=== PATIENT | female | born 1950 | race African-American/Black ===

== ENCOUNTER 2021-05-13 20:10 | Emergency (ER) | payer OTHER, BC ==
[~2021-05-13] VITALS: Ht 165.1 cm; Wt 60.3 kg
[2021-05-13 21:03] LABS: ABSOLUTE NEUTROPHILS 4.1 thou/uL (1.4-8.2); BASOPHILS 0.6 % (0.0-2.0); EOSINOPHILS 0.1 % (0.0-3.0); HEMOGLOBIN 14.9 gm/dL (12.0-15.0); MCH 29.8 pg (26.0-34.0); MCHC 33.9 g/dL (28.0-37.0); MONOCYTES 5.9 % (1.0-8.0); PLATELET COUNT 199 thou/uL (150-400); POLYS 76.4 % (36.0-66.0); RBC 4.99 mil/uL (4.20-5.00); RDW 13.7 % (10.5-14.5); WBC 5.4 thou/uL (4.0-11.0)
[2021-05-13 21:15] LABS: CALCIUM 9.2 mg/dL (8.5-10.1); CREATININE 1.1 mg/dL (0.6-1.0)
[2021-05-13 21:20] LABS: POTASSIUM 2.9 mmol/L (3.5-5.1)
[2021-05-13] MEDS ORDERED: NORVASC5 MG PO (22:01)
[2021-05-13 22:19] VITALS: BP 198/102
--- NOTE | 2021-05-14 07:13 | EKG ---
[address] [place] [address] ELECTROCARDIOGRAM REPORT Name: PATTIE DWYER Room #: DEP Stella#: [id number] Admission: 05/13/21 Attend Phys: Discharge: 05/13/21 Date of : 48 Report #: [id number] [facility] ED Test Date: 2021-05-13 Test Time: 20:35:24 Pat Name: PATTIE DWYER Department: Room: Gender: F Bag Machine Tender: jackson : 1950 Requested By: Reid To Order Number: [id number] MD: Frederick Edwards Measurements Intervals [place] Rate: 81 P: 69 RI: 175 QRS: 38 QRSD: 92 T: 59 QT: 305 QTc: 354 Interpretive Statements Sinus rhythm Probable left atrial enlargement Borderline repolarization abnormality No previous ECG available for comparison Electronically Signed On 05-14-2021 7:13:24 FIRE COORDINATOR by Frederick Edwards [email or web address] <ELECTRONICALLY SIGNED> By: Frederick Edwards MD, [facility] 05/14/21712 34 34 Frederick Edwards MD, FACC /EPI
== END 2021-05-13 22:28 | disposition home or self-care (01) ==
LOC: ER 20:10
PROVIDERS: Emergency Medicine
DX: I10 Essential (primary) hypertension (principal); E87.6 Hypokalemia; R42 Dizziness and giddiness; Z88.8 Allergy status to other drugs, medicaments and biological substances